=== PATIENT | male | born 1985 | race Caucasian/White ===

== ENCOUNTER 2018-11-09 18:34 | Emergency (ER) | payer BC ==
[2018-11-09] MEDS ORDERED: Diphtheria,Pertussis(Acell),Tetanus Vaccine 0.5 ML SDV IM ONE (19:31)
[2018-11-09] MEDS ORDERED: Lidocaine 1% 10 ML MDV INJECT ONE (19:31)
--- NOTE | 2018-11-09 20:16 | EDM.PDOC ---
ED HPI GENERAL MEDICAL PROBLEM - General Chief Complaint: Laceration Stated Complaint: LEFT LEG DAHL BONE INJURY/LACERATION Time Seen by Provider: 11/09/18 19:07 Source of Information: Reports: Patient History Limitations: Reports: No Limitations - History of Present Illness INITIAL COMMENTS - FREE TEXT/NARRATIVE: 33 year old male presents for laceration to the left dahl and an abrasion to the left distal thigh. Patient reports he was running he did not realize that there is a cinder block in the grass. He states that he ran into it. He reports a puncture wound in the mid left anterior dahl and an abrasion to the left distal thigh. Bleeding controlled upon arrival to the ER. Reports pain to these areas. No other injuries from the fall, no head trauma. Unsure of last tetanus. Onset: Today, Sudden Left Lower Leg Pain Score (Numeric/FACES): 10 - Related Data Allergies Allergy/AdvReac Type Severity Reaction Status Date / Time No Known Allergies Allergy Verified 11/09/18 18:55 Home Meds: Home Meds Buprenorphine HCl/Naloxone HCl [Suboxone 4 mg-1 mg Sl Film] 1 applic TOP DAILY 11/09/18 [History] Cephalexin [Keflex] 500 mg PO BID #14 capsule 11/09/18 [Rx] Past Medical History HEENT History: Reports: Other (See Below) Other HEENT History: insominia Cardiovascular History: Reports: Hypertension Psychiatric History: Reports: Addiction Other Psychiatric History: pain meds-is on suboxone now Social & Family History - Tobacco Use Smoking Status *Q: Current Every Day Smoker Years of Tobacco use: 21 Packs/Tins Daily: 1 - Caffeine Use Caffeine Use: Reports: Energy Drinks - Recreational Drug Use Recreational Drug Use: No 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 ED ROS GENERAL - Review of Systems Review Of Systems: See Below Skin: Reports: Wound Neurological: Denies: Syncope ED EXAM, SKIN/RASH Exam: See Below Exam Limited By: No Limitations General Appearance: Alert, WD/WN, No Apparent Distress Respiratory/Chest: No Respiratory Distress Peripheral Pulses: 3+: Posterior Tibial (L), Posterior Tibial (R), Dorsalis Pedis (L), Dorsalis Pedis (R) Extremities: Normal Inspection (no obvious abnormality), Normal Capillary Refill Neurological: Alert, Oriented, Normal Cognition Psychiatric: Normal Affect, Normal Mood Skin: Warm, Dry, Normal Color, Wound/Incision (0.5 cm puncture wound to the left anterior mid lower leg and a 2cm abrasion to the left anterior distal thigh ) ED SKIN PROCEDURES - Laceration/Wound Repair Left Anterior Leg Appearance: Subcutaneous, Irregular Distal NVT: Neuro & Vascular Intact, No Tendon Injury Anesthetic Type: Local Local Anesthesia - Lidocaine (Xylocaine): 1% Plain Local Anesthetic Volume: 2cc Skin Prep: Chlorhexidine (Hibiciens), Saline, Sterile Drape Exploration/Debridement/Repair: No Foreign Material Found Closed with: Sutures Lac/Wound length In cm: 0.5 Suture Size: 4-0 # of Sutures: 2 Suture Type: Silk, Interrupted, Simple Sterile Dressing Applied: Nurse Tetanus Status Addressed: Yes Complications: No Course - Vital Signs Last Recorded V/S: Last Vital Signs Temp 99.1 F 11/09/18 18:59 Pulse 76 11/09/18 18:59 Resp 20 11/09/18 18:59 BP 125/73 11/09/18 18:59 Pulse Ox 95 11/09/18 18:59 - Orders/Labs/Meds Orders: Active Orders 24 hr Category Date Time Status Vaccines to be Administered [RC] PER UNIT ROUTINE Care 11/09/18 19:31 Active Meds: Medications Discontinued Medications Generic Name Dose Route Start Last Admin Trade Name Freq PRN Reason Stop Dose Admin Diphtheria/Tetanus/Acell Pertussis 0.5 ml 11/09/18 19:31 11/09/18 19:47 Adacel IM 11/09/18 19:32 0.5 ml .ONCE ONE Administration Lidocaine HCl 10 ml 11/09/18 19:31 11/09/18 19:47 Xylocaine 1% INJECT 11/09/18 19:32 10 ml ONETIME ONE Administration - Re-Assessments/Exams Free Text/Narrative Re-Assessment/Exam: 11/09/18 20:05 2 sutures placed to the puncture wound. Area irrigated with saline and chlorhexadine. Tolerated well. No complications. Tetanus up dated. Discharge instructions as documented. Departure - Departure Time of Disposition: 20:08 Disposition: Home, Self-Care 01 Condition: Good Clinical Impression: Laceration - Discharge Information *PRESCRIPTION DRUG MONITORING PROGRAM REVIEWED*: No *COPY OF PRESCRIPTION DRUG MONITORING REPORT IN PATIENT JOSE CARLOS: No Prescriptions: Cephalexin [Keflex] 500 mg PO BID #14 capsule Instructions: Laceration Care, Adult Referrals: PCP,None [Primary Care Provider] - Forms: ED Department Discharge Additional Instructions: cephalexin 1 tab PO bid x 7 days. your tetanus was updated tonight, this is good for the next 10 years. OTC tylenol or motrin as needed for discomfort. watch the wound for signs of infection such as increased swelling, pus or redness. present to the clinic or the ER should these present have the sutures removed in 10 days. the [facility] clinic located on the east side of the [facility] is open Monday to Monday 8am to 5 pm and will remove the sutures for free. Call [phone] to schedule with a provider there. wash the wound with gentle soap and water twice a day. Do not submrge the wound for long periods of time. Please return to the er should your symptoms change or worsen. - My Orders Last 24 Hours: My Active Orders 11/09/18 19:31 Vaccines to be Administered [RC] PER UNIT ROUTINE - Assessment/Plan Last 24 Hours: My Active Orders 11/09/18 19:31 Vaccines to be Administered [RC] PER UNIT ROUTINE
== END 2018-11-09 20:24 | disposition home or self-care (01) ==
LOC: JD.ED 18:34
DX: S81.812A Laceration without foreign body, left lower leg, initial encounter (principal); S70.312A Abrasion, left thigh, initial encounter; I10 Essential (primary) hypertension; F17.210 Nicotine dependence, cigarettes, uncomplicated; Z79.899 Other long term (current) drug therapy; Z23 Encounter for immunization; W22.8XXA Striking against or struck by other objects, initial encounter
CPT/HCPCS: 12001; 90471; 90715; 99282; J2001; 99283

== ENCOUNTER 2022-07-01 16:54 | Emergency (ER) | payer SELFPAY ==
[2022-07-01] MEDS ORDERED: Sodium Chloride 0.9% 10 ML Syringe FLUSH PRN (18:09)
[2022-07-01] MEDS ORDERED: Lactated Ringers 1,000 ML IV ONE (19:01)
[2022-07-01] MEDS ORDERED: Ondansetron 4 MG/2 ML SDV IVPUSH ONE (19:34)
[2022-07-01] MEDS ORDERED: Ibuprofen 600 MG Tab PO ONE (21:01)
== END 2022-07-01 22:02 | disposition home or self-care (01) ==
LOC: JD.ED 16:54 → SUPCPDRO 16:54 → JD.ED 22:02
DX: U07.1 COVID-19 (principal); I10 Essential (primary) hypertension; N40.0 Benign prostatic hyperplasia without lower urinary tract symptoms; E66.9 Obesity, unspecified; Z68.39 Body mass index [BMI] 39.0-39.9, adult; Z86.16 Personal history of COVID-19; Z87.891 Personal history of nicotine dependence
CPT/HCPCS: 36415; 71045; 80053; 82728; 83615; 83690; 84484; 85025; 85379; 86140; 93005; 96361; 96374; 99284; A9270; J2405; J3490; J7120; 93010

== ENCOUNTER 2023-02-18 00:54 | Emergency (ER) | payer SELFPAY ==
[2023-02-18] MEDS ORDERED: Sodium Chloride 0.9% 10 ML Syringe FLUSH PRN (01:22)
[2023-02-18] MEDS ORDERED: Meclizine 25 MG Tab PO ONE (01:22)
[2023-02-18] MEDS ORDERED: Sodium Chloride 0.9% 1,000 ML IV SCH (01:30)
[2023-02-18 01:50] LABS: BASOPHILS ABSOLUTE AUTO 0.1 K/mm3 (0.0-0.2); BASOPHILS PERCENT AUTO 0.6 % (0.0-1.0); EOSINOPHILS ABSOLUTE AUTO 0.2 K/mm3 (0.0-0.4); HEMATOCRIT 41.4 % (42.0-52.0); HEMOGLOBIN 14.2 gm/dl (14.0-18.0); IMMATURE GRAN ABSOLUTE AUTO 0.04 K/mm3 (0.00-0.05); IMMATURE GRAN PERCENT AUTO 0.5 % (0.0-0.4); LYMPHOCYTES ABSOLUTE AUTO 2.7 K/mm3 (1.0-4.8); LYMPHOCYTES PERCENT AUTO 33.8 % (24.0-44.0); MEAN CORPUSCULAR HGB CONC 34.3 g/dl (32.0-36.0); MEAN CORPUSCULAR VOLUME 87.5 fl (83.0-99.0); MEAN PLATELET VOLUME 9.9 fl (9.4-12.4); MONOCYTES ABSOLUTE AUTO 0.6 K/mm3 (0.0-0.8); MONOCYTES PERCENT AUTO 8.1 % (0.0-8.0); NEUTROPHILS ABSOLUTE AUTO 4.3 K/mm3 (1.8-7.7); PLATELET COUNT,PLT 217 K/mm3 (150-400); RED BLOOD CELL COUNT 4.73 M/mm3 (4.52-5.90); WHITE BLOOD CELL COUNT,WBC 7.89 K/mm3 (3.9-11.3)
[2023-02-18 02:13] LABS: A/G RATIO 0.9 (1-2); ALBUMIN 3.4 g/dl (3.4-5.0); ANION GAP 11.8 (5-15); BILIRUBIN TOTAL 0.3 mg/dL (0.2-1.0); BUN/CREATININE RATIO 11.1 (14-18); C-REACTIVE PROTEIN 0.8 mg/dL (<1.0); CALCIUM 9.3 mg/dL (8.5-10.1); CREATININE 0.9 mg/dL (0.7-1.3); EST CRCL DRUG DOSING (CG) 111.29 mL/min; MAGNESIUM 1.8 mg/dL (1.8-2.4); POTASSIUM,K 3.8 mEq/L (3.5-5.1); PROTEIN TOTAL,TP 7.1 g/dl (6.4-8.2)
[2023-02-18 02:50] LABS: CORONAVIRUS COVID-19 NAA NEGATIVE (NEGATIVE); INFLUENZA A NAA NEGATIVE (NEGATIVE); RESPIRATORY SYNCYTIAL VIR NAA NEGATIVE (NEGATIVE)
== END 2023-02-18 03:35 | disposition home or self-care (01) ==
LOC: JD.ED 00:54
DX: R42 Dizziness and giddiness (principal); I10 Essential (primary) hypertension; E66.9 Obesity, unspecified; Z86.16 Personal history of COVID-19; Z79.899 Other long term (current) drug therapy; Z68.41 Body mass index [BMI] 40.0-44.9, adult
CPT/HCPCS: 0241U; 36415; 70450; 71045; 80053; 83735; 84484; 85025; 85379; 86140; 93005; 99285; A9270; J3490; J7030; 93010; 99283